=== PATIENT | male | born 1990 | race Caucasian/White ===

== ENCOUNTER 2018-02-18 01:58 | Outpatient (CLI) | payer BC, SELFPAY ==
[2018-02-18 11:24] LABS: Hemoglobin A1C 7.5 % (4.5-6.2)
== END 2018-02-18 02:18 ==
PROVIDERS: PCP Family Medicine; Visit Provider Family Medicine
DX: E11.9 Type 2 diabetes mellitus without complications (principal)
CPT/HCPCS: 36415; 83036

== ENCOUNTER 2018-10-23 15:33 | Outpatient (REF) | payer MEDICAID, SELFPAY ==
[2018-10-23 19:09] LABS: ALT 37 U/L (12-78); AST 31 U/L (15-37); Albumin 4.1 g/dL (3.4-5.0); Alkaline Phosphatase 84 U/L (46-116); Anion Gap 12.6 mmol/L (3-11); BUN 20 mg/dL (7-18); Bilirubin, Total 0.4 mg/dL (0.2-1.0); CO2 25.4 mmol/L (21.0-32.0); Calculated LDL 41 mg/dL; Chloride 106 mmol/L (98-107); Cholesterol 110 mg/dL (50-200); Glucose 94 mg/dL (70-100); HDL Cholesterol 31 mg/dL (40-60); Sodium 144 mmol/L (136-145); Total Protein 7.5 g/dL (6.4-8.2); Triglyceride 192 mg/dL (30-150)
[2018-10-26 10:35] LABS: Hepatitis C Ab w Rflx HCV PCR Negative (NEGAT)
[2018-10-26 10:43] LABS: HIV-1/2 Ag & Ab Screen Negative (NEGAT)
[2018-10-26 10:55] LABS: Hepatitis B Surface Ag Negative (NEGAT)
== END 2018-10-23 15:53 ==
LOC: NCHCN 15:33
PROVIDERS: PCP Family Medicine; Visit Provider Family Medicine
DX: Z11.59 Encounter for screening for other viral diseases (principal); Z11.4 Encounter for screening for human immunodeficiency virus [HIV]; F10.21 Alcohol dependence, in remission; E11.9 Type 2 diabetes mellitus without complications
CPT/HCPCS: 80053; 80061; 83721; 86803; 87340; 87389

== ENCOUNTER 2019-12-31 12:06 | Outpatient (REF) | payer MEDICAID, SELFPAY ==
[2019-12-31 17:01] LABS: Anion Gap 10.4 mmol/L (3-11); BUN 22 mg/dL (7-18); CO2 24.6 mmol/L (21.0-32.0); Calcium 9.2 mg/dL (8.5-10.1); Chloride 103 mmol/L (98-107); Glucose 142 mg/dL (74-106); Potassium 4.7 mmol/L (3.5-5.1); Sodium 138 mmol/L (136-145)
[2019-12-31 17:14] LABS: Hemoglobin A1C 5.9 % (<5.7)
== END 2019-12-31 12:26 ==
LOC: NCHCN 12:06
PROVIDERS: PCP Family Medicine; Visit Provider Family Medicine
DX: I10 Essential (primary) hypertension (principal)
CPT/HCPCS: 80048; 83036

== ENCOUNTER 2020-05-22 09:44 | Emergency (ER) | payer OTHER, SELFPAY ==
[2020-05-22 09:47] VITALS: BP 145/68; PULSE 80; RESP 20; TEMP 36.2; O2SAT 96
--- NOTE | 2020-05-22 10:00 | W.ED.GENAD ---
Discharge Plan Disposition Patient Disposition: HOME Condition: Stable Discharge Details Clinical Impression: Puncture wound of right thigh, Laceration Primary Care Provider: Peterson Caballero ED Provider: Dottie Pierce Home Meds and New Rx's Prescriptions: Continued (DME) lancets [OneTouch Delica Lancets] 1 EACH misc 1 ea Miscellaneous DAILY Qty: 100 RF: 5 omeprazole 20 MG capsule,delayed release(DR/EC) 20 mg PO DAILY Qty: 90 RF: 3 metformin 1,000 MG tablet 1,000 mg PO BID Qty: 180 RF: 4 ONETOUCH ULTRA TEST STRIPS 1 EACH strip 1 ea Miscellaneous DAILY Qty: 100 RF: 5 Indomethacin [Indomethacin ER] 75 MG CAPSULE.ER 1 cap PO TID PRNQty: 30 RF: 1 lisinopril 10 mg tablet 10 mg PO DAILY RF: 0 trazodone 300 mg tablet 300 mg PO HS PRNRF: 0 Discharge Instructions Instructions: Laceration (ED), Puncture Wound (ED) Additional Instructions: Sutures will absorb in 7-10 days. keep clean and dry. No soaking. May wash under running water after 24 hours. Return to the ED for any signs of infection including increased redness, swelling, drainage or any concerns. Please be careful not to reopen the laceration if possible. Anesthestic medication will wear off in 1 to 2 hours. Please take Tylenol or Ibuprofen with food every 4-6 hours as needed for pain and swelling. Follow up with primary care provider in 3-5 days. Return to ED sooner if any worsening or concerns. Increase oral fluids. Stand Alone Forms: Work Release Referrals: Peterson Caballero [Primary Care Provider] - Medical Decision Making 29-year-old male presents to the ER with right anterior thigh puncture wound sustained from a accidental knife puncture while at work. He has approximately 1/2 cm linear laceration to his anterior thigh with mild amount of venous oozing noted. Wound was anesthetized with 1% lidocaine with epinephrine, patient tolerated well anesthesia was achieved. Wound was irrigated with normal saline. Sterile procedure was set up and adhered to. Laceration was well approximated with four-point 0 Vicryl absorbable simple interrupted sutures #3. 4 Steri-Strips were applied to reinforce closure. Discussed home care and strict return instructions with patient, verbalized understanding. HPI General Mode of arrival: ambulatory. Date/Time Provider Initiated Documentation: 05/22/20 09:45. Limitations to Documentation: no limitations. Information obtained by: patient. HPI Narrative: 29-year-old male presents to the ER chief complaint of right thigh laceration. Patient states he was at work when he was cutting an breast plate and the knife slipped off the table puncturing his right thigh. Unknown depth of wound. He has approximately 1 cm linear laceration noted to his right anterior thigh. Bleeding is controlled upon arrival. He states that it did have moderate bleeding on scene. He reports his tetanus is up-to-date. He does have full range of motion to his leg. Related Data Home Medications Medication Instructions Recorded Confirmed lancets [[employer] Lancets] #100 ea 11/18/14 01/13/18 omeprazole 20 mg PO DAILY #90 tab-cap 02/11/17 05/22/20 metformin 1,000 mg PO BID #180 tab-cap 08/15/17 05/22/20 lisinopril 10 mg PO DAILY 05/22/20 05/22/20 trazodone 300 mg PO HS PRN 05/22/20 05/22/20 Previous Rx's Medication Instructions Recorded omeprazole 20 mg PO DAILY #90 tab-cap 02/11/17 metformin 1,000 mg PO BID #180 tab-cap 08/15/17 Allergies Allergy/AdvReac Type Severity Reaction Status Date / Time ENVIROMENTAL Allergy Unknown Uncoded 01/13/18 14:32 General Stated Complaint: Laceration ROYER: 4 Review of Systems All systems reviewed & are unremarkable except as noted in HPI and below Integumentary/Breasts Skin/Breast: Reports wounds (Approximately 1 cm puncture wound right anterior thigh.) [facility] Surgical History Adenoidectomy (07/21/95) Myringotomy w/ PE (pressure equalizing) tubes (07/21/95) RADIAL SALTER III FX (10/06/06) RIGHT Tonsillectomy 2001; [facility] Family History Mother No problems noted. Father Diabetes Asthma Sister No problems noted. Grandfather No problems noted. Grandfather Stroke Grandmother Essential hypertension Grandmother No problems noted. 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 1 cm laceration/puncture wound Course Vital Signs Vital signs: Vital Signs Temperature 36.2 C L 05/22/20 09:47 Pulse 80 05/22/20 09:47 Respiratory Rate 20 05/22/20 09:47 Blood Pressure 145/68 H 05/22/20 09:47 Pulse Oximetry 96 05/22/20 09:47 Temperature 36.2 C L 05/22/20 09:47 Temperature Source Skin 05/22/20 09:47 Pulse 80 05/22/20 09:47 Respiratory Rate 20 05/22/20 09:47 Respiratory Effort Non-Labored 05/22/20 09:52 Blood Pressure 145/68 H 05/22/20 09:47 Blood Pressure Position Sitting 05/22/20 09:47 Pulse Oximetry 96 05/22/20 09:47 Oxygen Delivery Method Room Air 05/22/20 09:47 Oxygen Flow Rate 0 05/22/20 09:47 Pain Level 1 05/22/20 09:47 Procedures Laceration Laceration 1: Site: lower extremity Side (If applicable): right Size (cm): 1.5 Description: linear Depth: simple, single layer Local Anesthetic: Lidocaine 1% and with Epi Amount of anesthesia used (mL): 1 Pre-repair: wound explored and irrigated extensively Skin layer closed with: vicryl Size (cm): 4-0 Number of sutures: 3 Technique: simple, interrupted
== END 2020-05-22 10:33 | disposition home or self-care (01) ==
LOC: ER 10:29
PROVIDERS: Emergency Provider Registered Nurse Emergency; PCP Family Medicine
DX: S71.111A Laceration without foreign body, right thigh, initial encounter (principal); W26.0XXA Contact with knife, initial encounter; Y99.0 Civilian activity done for income or pay
CPT/HCPCS: 12001

== ENCOUNTER 2020-11-06 21:16 | Outpatient (REF) | payer MEDICAID, SELFPAY ==
[2020-11-06 16:34] LABS: Anion Gap 10.6 mmol/L (3-11); BUN 15 mg/dL (7-18); CO2 23.4 mmol/L (21.0-32.0); CREATININE 0.9 mg/dL (0.70-1.30); Calcium 9.2 mg/dL (8.5-10.1); Chloride 105 mmol/L (98-107); Glucose 200 mg/dL (74-106); Potassium 4.9 mmol/L (3.5-5.1); Sodium 139 mmol/L (136-145)
== END 2020-11-06 21:17 | disposition home or self-care (01) ==
LOC: LBN 21:16
PROVIDERS: PCP Family Medicine; Visit Provider Family Medicine
DX: E11.9 Type 2 diabetes mellitus without complications (principal); I10 Essential (primary) hypertension
CPT/HCPCS: 80048

== ENCOUNTER 2021-08-17 08:41 | Emergency (ER) | payer MEDICAID, SELFPAY ==
[2021-08-17 08:47] VITALS: BP 154/65; PULSE 58; RESP 16; TEMP 36.2; O2SAT 98
--- NOTE | 2021-08-17 11:10 | W.ED.GENAD ---
Discharge Plan Disposition Patient Disposition: HOME Condition: Stable Discharge Details Clinical Impression: Laceration Primary Care Provider: Peterson Caballero ED Provider: Genet Bean Home Meds and New Rx's Prescriptions: Continued (DME) lancets [OneTouch Delica Lancets] 1 EACH misc 1 ea Miscellaneous DAILY Qty: 100 5RF omeprazole 20 MG capsule,delayed release(DR/EC) 20 mg PO DAILY Qty: 90 3RF metformin 1,000 MG tablet 1,000 mg PO BID Qty: 180 4RF ONETOUCH ULTRA TEST STRIPS 1 EACH strip 1 ea Miscellaneous DAILY Qty: 100 5RF Indomethacin [Indomethacin ER] 75 MG CAPSULE.ER 1 cap PO TID PRNQty: 30 1RF Rx Instructions: For gout attack lisinopril 10 mg tablet 10 mg PO DAILY 0RF Label Comments: TAKE 1 TABLET BY MOUTH ONCE DAILY FOR BLOOD PRESSURE trazodone 300 mg tablet 300 mg PO HS PRN0RF Label Comments: TAKE 1 TABLET BY MOUTH EVERY NIGHT AT BEDTIME NEEDED FOR INSOMNIA Discharge Instructions Instructions: Laceration (ED) Additional Instructions: tylenol for pain as needed suture removal in 10 days keep splint in place for 5 days keep dry for 24 hours and do not submerge in water for one week return earlier with spreading redness, fever, worsening pain refrain from bending or it will delay healing Stand Alone Forms: Work Release Discharge Data Discharge Date/Time-TO BE ENTERED AT DEPARTURE: 08/17/21 10:17 Medical Decision Making Patient tolerated suture placement without incident 10 days for suture removal placed in a splint Return precautions discussed and patient expressed understanding Medical Records Medical records reviewed: Yes I reviewed the patient's medical records. HPI General Date/Time Provider Initiated Documentation: 08/17/21 08:53. HPI Narrative: This 30-year-old gentleman with history of diabetes, hypertension, hyperlipidemia presents with reports of laceration to right second digit while at work. He was cutting meat when he accidentally cut his finger. He is unsure regarding his tetanus. He denies any strength or sensation change he denies any additional injuries. The event occurred an hour prior to arrival. Related Data Home Medications Medication Instructions Recorded Confirmed lancets 33 gauge (OneTouch Delica #100 ea 11/18/14 01/13/18 Lancets) omeprazole 20 mg capsule,delayed 20 mg PO DAILY #90 tab-cap 02/11/17 08/17/21 release metformin 1,000 mg tablet 1,000 mg PO BID #180 tab-cap 08/15/17 08/17/21 lisinopril 10 mg tablet 10 mg PO DAILY 05/22/20 08/17/21 trazodone 300 mg tablet 300 mg PO HS PRN 05/22/20 08/17/21 Previous Rx's Medication Instructions Recorded omeprazole 20 mg capsule,delayed 20 mg PO DAILY #90 tab-cap 02/11/17 release metformin 1,000 mg tablet 1,000 mg PO BID #180 tab-cap 08/15/17 Allergies Allergy/AdvReac Type Severity Reaction Status Date / Time ENVIROMENTAL Allergy Unknown Uncoded 08/17/21 08:49 General 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; MILD RETINOPATHY Increased body mass index (Acute) Essential hypertension (Acute 04/25/16) Diabetes mellitus (Acute 12/06/14) GERD (gastroesophageal reflux disease) (Chronic) Tobacco dependence (Chronic) Excessive drinking alcohol (Chronic) H/O surgical procedure (Chronic) a. adenoidectomy 06/1995 b. myringotomy with PE tubes c. right radius Salter III fx 09/2006 d. tonsillectomy 2001 Surgical History Adenoidectomy (07/21/95) Myringotomy w/ PE (pressure equalizing) tubes (07/21/95) RADIAL SALTER III FX (10/06/06) RIGHT Tonsillectomy 2001; [facility] Family History Mother No problems noted. Father Diabetes Asthma Sister No problems noted. Grandfather No problems noted. Grandfather Stroke Grandmother Essential hypertension Grandmother No problems noted. Social History Smoking/Tobacco Use Status: Current every day Tobacco Type: smokeless tobacco Smoking risk assessment performed?: Yes Alcohol Intake: current Alcohol Intake frequency: holidays/special occasions only Drug use: Current Sobriety Substance use type: does not use Household members: other Details: 4 current occupation: LEASING ASSISTANT Pets and animals: Yes Pets and animals: dog(s) What type of physical activity do you participate in: none Lesley/Mu-Ism: Sabianist Special lesley needs: No Do you feel safe in your relationship?: Yes Exam Const General: cooperative and comfortable Orientation: alert and oriented x3 Extrem Hand/finger images: 1. 1 inch laceration noted, neurovascularly intact, strength intact Course Vital Signs Vital signs: Vital Signs Temperature 36.2 C L 08/17/21 08:47 Pulse 58 L 08/17/21 08:47 Respiratory Rate 16 08/17/21 08:47 Blood Pressure 154/65 H 08/17/21 08:47 Pulse Oximetry 98 08/17/21 08:47 Temperature 36.2 C L 08/17/21 08:47 Temperature Source Skin 08/17/21 08:47 Pulse 58 L 08/17/21 08:47 Respiratory Rate 16 08/17/21 08:47 Respiratory Effort 08/17/21 08:47 Blood Pressure 154/65 H 08/17/21 08:47 Blood Pressure Position Sitting 08/17/21 08:47 Pulse Oximetry 98 08/17/21 08:47 Oxygen Delivery Method Room Air 08/17/21 08:47 Oxygen Flow Rate 0 08/17/21 08:47 Pain Level 0 08/17/21 09:17 Procedures Laceration Laceration 1: Site: upper extremity Side (If applicable): left Size (cm): 2 Description: flap Depth: simple, single layer Local Anesthetic: Lidocaine 1% Amount of anesthesia used (mL): 3 Pre-repair: wound explored Size (cm): 4-0 Number of sutures: 2 Technique: other (vertical mattress)
== END 2021-08-17 10:17 | disposition home or self-care (01) ==
PROVIDERS: Emergency Provider Physician Assistant; PCP Family Medicine
DX: S61.211A Laceration without foreign body of left index finger without damage to nail, initial encounter (principal); W26.0XXA Contact with knife, initial encounter; Y99.0 Civilian activity done for income or pay
CPT/HCPCS: 12001; 29130; 90471

== ENCOUNTER 2021-08-27 10:13 | Outpatient (CLI) | payer MEDICAID, SELFPAY ==
--- NOTE | 2021-08-27 09:27 | DI.RAD_ITS ---
Exam(s) XR HAND LT COMPLETE EXAM: XR HAND LT COMPLETE CLINICAL HISTORY: LEFT FINGER PAIN, M79.645. TECHNIQUE: 2D digital imaging was performed. Three views. COMPARISON: No exams were available for comparison FINDINGS: BONES: No acute fracture is present. No bony destructive lesion is seen. JOINTS: No dislocation present. SOFT TISSUE: Swelling around index finger. No foreign body or soft tissue air. IMPRESSION: Soft tissue swelling of the index finger. No foreign body or fracture. DATA REPOSITORY: RADIATION DOSE DELIVERED:
== END 2021-08-27 10:33 ==
PROVIDERS: PCP Family Medicine; Visit Provider Nurse Practitioner Family
DX: M79.89 Other specified soft tissue disorders (principal); M79.645 Pain in left finger(s)
CPT/HCPCS: 73130

== ENCOUNTER 2022-10-24 09:38 | Emergency (ER) | payer OTHER, SELFPAY ==
[2022-10-24 09:44] VITALS: BP 144/82; PULSE 92; RESP 18; TEMP 36.8; O2SAT 99
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
== END 2022-10-24 10:53 | disposition home or self-care (01) ==
PROVIDERS: Emergency Provider Physician Assistant; PCP Family Medicine
DX: T22.632A Corrosion of second degree of left upper arm, initial encounter (principal); T52.8X1A Toxic effect of other organic solvents, accidental (unintentional), initial encounter; Y99.0 Civilian activity done for income or pay
CPT/HCPCS: 16020

== ENCOUNTER 2022-11-05 10:55 | Emergency (ER) | payer SELFPAY ==
[2022-11-05 11:05] VITALS: BP 154/95; PULSE 104; RESP 18; TEMP 36.7; O2SAT 99
[2022-11-05] MEDS: Lactated Ringers 1,000 ML 1000 ML IV (12:28)
[2022-11-05 12:35] LABS: Abs Immature Grans 0.12 10^3/uL (0.0-0.06); Absolute Basophil Count 0.09 10^3/uL (0.0-0.2); Absolute Eosinophil Count 0.33 10^3/uL (0.0-0.7); Absolute Lymphocyte Count 2.37 10^3/uL (1.2-3.4); Absolute Monocyte Count 0.73 10^3/uL (0.1-0.8); Absolute Neutrophil Count 6.84 10^3/uL (1.2-6.7); Basophils % 0.9; Eosinophils % 3.1; HCT 49.5 % (40.0-50.0); Immature Grans % 1.1; Lymphocytes % 22.6; MCH 31.5 pg (27.0-33.0); MCHC 34.3 % (32.0-36.0); MCV 92 fL (80-95); MPV 9.8 fL (8.0-11.0); Neutrophils % 65.3; Platelet Count 218 10^3/uL (130-400); RDW 11.6 % (11.8-14.1); WBC 10.48 10^3/uL (4.4-10.8)
[2022-11-05 13:00] LABS: ALT 104 U/L (16-63); AST 63 U/L (15-37); Alkaline Phosphatase 89 U/L (46-116); Anion Gap 10.9 mmol/L (3-11); BUN 9 mg/dL (7-18); Bilirubin, Total 0.4 mg/dL (0.2-1.0); CO2 27.1 mmol/L (21.0-32.0); Calcium 9.4 mg/dL (8.5-10.1); Chloride 101 mmol/L (98-107); Estimated GFR 103.19 (mL/min/1.73m2); Glucose 109 mg/dL (74-106); Lipase 42 U/L (16-77); Potassium 4.3 mmol/L (3.5-5.1); Sodium 139 mmol/L (136-145)
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
== END 2022-11-05 13:41 | disposition home or self-care (01) ==
PROVIDERS: Emergency Provider Physician Assistant; PCP Family Medicine
DX: R11.2 Nausea with vomiting, unspecified (principal); R19.7 Diarrhea, unspecified
CPT/HCPCS: 36415; 36416; 80053; 82962; 83690; 96360; 99284; 85025